=== PATIENT | male | born 1995 | race Caucasian/White ===

== ENCOUNTER 2017-09-28 01:41 | Emergency (ER) | payer OTHER ==
[~2017-09-28] VITALS: Ht 165.1 cm; Wt 87.5 kg
[2017-09-28 01:46] VITALS: Ht 165.1 cm; Wt 87.5 kg
[2017-09-28 02:54] VITALS: BP 130/60
== END 2017-09-28 02:54 | disposition home or self-care (01) ==
LOC: ED 01:41
DX: S86.812A Strain of other muscle(s) and tendon(s) at lower leg level, left leg, initial encounter (principal); S86.811A Strain of other muscle(s) and tendon(s) at lower leg level, right leg, initial encounter; V89.2XXA Person injured in unspecified motor-vehicle accident, traffic, initial encounter; Y93.89 Activity, other specified; Y92.89 Other specified places as the place of occurrence of the external cause; Y99.8 Other external cause status
CPT/HCPCS: J1885; Q0092

== ENCOUNTER 2017-09-29 11:48 | Emergency (ER) | payer OTHER ==
[~2017-09-29] VITALS: Ht 167.6 cm; Wt 87.3 kg
[2017-09-29 12:12] VITALS: Ht 167.6 cm; Wt 87.3 kg
[2017-09-29 12:58] VITALS: BP 136/89
== END 2017-09-29 12:58 | disposition home or self-care (01) ==
LOC: ED 11:48
DX: R51 Headache (principal); R42 Dizziness and giddiness; H53.8 Other visual disturbances; V43.52XA Car driver injured in collision with other type car in traffic accident, initial encounter; Y93.I9 Activity, other involving external motion; Y92.488 Other paved roadways as the place of occurrence of the external cause; Y99.8 Other external cause status

== ENCOUNTER 2017-10-05 23:35 | Emergency (ER) | payer OTHER ==
[~2017-10-05] VITALS: Ht 165.1 cm; Wt 86.2 kg
[2017-10-05 23:45] VITALS: Ht 165.1 cm; Wt 86.2 kg
[2017-10-06 01:57] LABS: BASOPHIL % 0.7 % (0-2); PLATELET COUNT 252 x10^3mcL (130-400)
[2017-10-06 02:10] LABS: CALCIUM 9.4 mg/dL (8.5-10.1); CARBON DIOXIDE 28.5 mmol/L (21-32); CHLORIDE SERUM 104 mmol/L (98-107); GFR1 > 60 mL/min; GLUCOSE SERUM 107 mg/dL (74-106); POTASSIUM SERUM 3.8 mmol/L (3.5-5.1); SODIUM SERUM 138 mmol/L (136-145)
[2017-10-06 02:15] LABS: ALBUMIN 3.9 g/dL (3.4-5.0); ALKALINE PHOSPHATASE 177 U/L (46-116); ALT/SGPT 29 U/L (16-63); AST/SGOT 23 U/L (15-37); BILIRUBIN TOTAL 0.68 mg/dL (0.20-1.00); TOTAL PROTEIN, SERUM 8.1 g/dL (6.4-8.2)
[2017-10-06 05:23] VITALS: BP 149/66
== END 2017-10-06 05:23 | disposition home or self-care (01) ==
LOC: ED 23:35
PROVIDERS: Emergency Medicine
DX: R59.0 Localized enlarged lymph nodes (principal)
CPT/HCPCS: J0295; J3490; J7030; Q9967